=== PATIENT | female | born 1955 | race Caucasian/White ===

== ENCOUNTER 2016-04-17 12:47 | Observation (INO) | payer OTHER ==
[~2016-04-17 12:47] MED LIST: ADULT ASPIRIN81 MG PO; ADULT LOW DOSE81 M1 PO; ASPIRIN325 MG PO; CELEXA40 MG; CITALOPRAM HBR40 M1 PO; CLOPIDOGREL75 MG PO; EFFIENT10 MG/TAB PO; FISH OIL 1,0001 EAC6 PO; ISORDIL30 MG PO; ISOSORBIDE MONO30 M1 PO; ISOSORBIDE MONO60 M3 PO; LEVOTHROID137 MCG PO; LEVOTHROID150 MCG PO; LISINOPRIL20 MG; LOPRESSOR50 MG; LOPRESSOR50 MG PO; LOVASTATIN20 M2 PO; LOVASTATIN20 MG; METOPROLOL TART25 MG PO; MOTRIN600 MG PO; NAPROSYN500 MG PO; NITROQUICK0.4 MG SL; NORVASC5 M2 PO; SYNTHROID112 MC1 PO; SYNTHROID150 MCG; TOPROL XL25 MG PO; TOPROL XL50 MG PO; ULTRAM50 MG PO; ZESTRIL20 M3 PO; ZESTRIL20 MG PO; ZESTRIL40 M1 PO
[2016-04-17 13:01] LABS: BASO % 0.3 % (0-2); EOSINOPHIL ABSOLUTE COUNT 0.3 tho/cmm (0.0-0.7); HCT-HEMATOCRIT 44.7 % (34.0-49.0); HGB-HEMOGLOBIN 15.5 gm/dl (12.0-15.5); IMMATURE GRANULOCYTES ABSOLUTE 0.01 tho/cmm (0-0.03); IMMATURE GRANULOCYTES PERCENT 0.1 % (0-0.3); LYMPH % 38.4 % (20-45); LYMPH ABSOLUTE COUNT 3.3 tho/cmm (0.8-4.5); MCH (MEAN CORPUSCULAR HGB) 30.7 pg (28.0-32.0); MCHC MEAN CORPUSCULAR HGB CONC 34.7 % (32.0-36.0); MCV (MEAN CELL VOLUME) 88.5 fl (82.0-96.0); MEAN PLATELET VOLUME 10.8 cmc (9.4-12.4); MONO % 5.2 % (0-12); MONOCYTE ABSOLUTE COUNT 0.5 tho/cmm (0.0-1.2); NEUTROPHIL ABSOLUTE COUNT 4.5 tho/cmm (1.6-8.0); NEUTROPHIL-AUTOMATED 4.5 tho/cmm (1.6-8.0); PLATELET COUNT 225 tho/cmm (150-450); RED BLOOD COUNT 5.05 mil/cmm (4.00-5.20); RED CELL DISTRIBUTION WIDTH 13.4 % (12.4-16.4); WHITE BLOOD COUNT 8.6 tho/cmm (4.0-10.0)
[2016-04-17] MEDS ORDERED: OMEPRAZOLE20 M3 PO (13:11)
[2016-04-17] MEDS ORDERED: WELLBUTRIN SR150 M2 PO (13:14)
[2016-04-17 13:20] LABS: ANION GAP 13 mmol/L (0-20); BLOOD UREA NITROGEN 9 mg/dl (6-24); CALCIUM 8.6 mg/dl (8.5-10.5); CARBON DIOXIDE-VENOUS 26 mmol/L (22-32); CHLORIDE 106 mmol/l (96-110); CREATININE 0.85 mg/dl (0.50-1.10); GLUCOSE 152 mg/dL (70-110); SODIUM 140 mmol/L (135-145); eGFR VALUE FOR BLACK 87 mL/Min
[2016-04-17 13:53] LABS: POTASSIUM 4.5 mmol/L (3.7-5.1)
[2016-04-18 06:29] LABS: BASO % 0.4 % (0-2); EOS % 6.3 % (0-7); EOSINOPHIL ABSOLUTE COUNT 0.4 tho/cmm (0.0-0.7); HCT-HEMATOCRIT 41.7 % (34.0-49.0); HGB-HEMOGLOBIN 13.9 gm/dl (12.0-15.5); IMMATURE GRANULOCYTES ABSOLUTE 0.02 tho/cmm (0-0.03); IMMATURE GRANULOCYTES PERCENT 0.4 % (0-0.3); LYMPH % 28.6 % (20-45); LYMPH ABSOLUTE COUNT 1.6 tho/cmm (0.8-4.5); MCH (MEAN CORPUSCULAR HGB) 29.8 pg (28.0-32.0); MCHC MEAN CORPUSCULAR HGB CONC 33.3 % (32.0-36.0); MCV (MEAN CELL VOLUME) 89.3 fl (82.0-96.0); MEAN PLATELET VOLUME 11.2 cmc (9.4-12.4); MONO % 10.4 % (0-12); MONOCYTE ABSOLUTE COUNT 0.6 tho/cmm (0.0-1.2); NEUTROPHIL ABSOLUTE COUNT 3.1 tho/cmm (1.6-8.0); NEUTROPHIL-AUTOMATED 3.1 tho/cmm (1.6-8.0); NEUTROPHILS % 53.9 % (40-80); PLATELET COUNT 196 tho/cmm (150-450); RED BLOOD COUNT 4.67 mil/cmm (4.00-5.20); RED CELL DISTRIBUTION WIDTH 13.6 % (12.4-16.4); WHITE BLOOD COUNT 5.7 tho/cmm (4.0-10.0)
[2016-04-18 06:58] LABS: ANION GAP 11 mmol/L (0-20); BLOOD UREA NITROGEN 11 mg/dl (6-24); CARBON DIOXIDE-VENOUS 27 mmol/L (22-32); CHLORIDE 106 mmol/l (96-110); CHOLESTEROL 116 mg/dl (120-200); CREATININE 0.71 mg/dl (0.50-1.10); GLUCOSE 87 mg/dL (70-110); HDL CHOLESTEROL 31 mg/dl (40-60); LDL CHOLESTEROL 63 mg/dl (0-99); SODIUM 140 mmol/L (135-145); TRIGLYCERIDES 113 mg/dl (<149); VLDL 23 mg/dl (0-30); eGFR VALUE FOR BLACK >90 mL/Min
[2016-04-18 07:00] LABS: POTASSIUM 3.5 mmol/L (3.7-5.1)
== END 2016-04-18 11:45 ==
LOC: EDMED 12:47 → EMR2 15:10 → PCUB 18:50
PROVIDERS: Emergency Medicine; ADMIT Internal Medicine Cardiovascular Disease
PROC: 4A023N7 Measurement of Cardiac Sampling and Pressure, Left Heart, Percutaneous Approach (ICD-10-PCS; principal; 2016-04-17)
PROC: B2111ZZ Fluoroscopy of Multiple Coronary Arteries using Low Osmolar Contrast (ICD-10-PCS; 2016-04-17)
DX: I25.110 Atherosclerotic heart disease of native coronary artery with unstable angina pectoris (principal); F17.200 Nicotine dependence, unspecified, uncomplicated; I10 Essential (primary) hypertension; E78.5 Hyperlipidemia, unspecified; Z79.82 Long term (current) use of aspirin; Z79.899 Other long term (current) drug therapy; Z88.5 Allergy status to narcotic agent; Z91.041 Radiographic dye allergy status; Z82.49 Family history of ischemic heart disease and other diseases of the circulatory system; Z90.710 Acquired absence of both cervix and uterus; Z90.49 Acquired absence of other specified parts of digestive tract; Z95.5 Presence of coronary angioplasty implant and graft; Z98.890 Other specified postprocedural states
CPT/HCPCS: C1725; C1769; C1894; G0378; J0153; J1200; J1644; J2250; J2720; J7030; Q9967

== ENCOUNTER 2016-04-20 07:11 | Emergency (ER) | payer OTHER ==
[2016-04-20 07:04] LABS: BASO % 0.2 % (0-2); EOS % 3.1 % (0-7); EOSINOPHIL ABSOLUTE COUNT 0.4 tho/cmm (0.0-0.7); HCT-HEMATOCRIT 45.6 % (34.0-49.0); HGB-HEMOGLOBIN 15.5 gm/dl (12.0-15.5); IMMATURE GRANULOCYTES ABSOLUTE 0.04 tho/cmm (0-0.03); IMMATURE GRANULOCYTES PERCENT 0.3 % (0-0.3); LYMPH % 27.4 % (20-45); LYMPH ABSOLUTE COUNT 3.5 tho/cmm (0.8-4.5); MCH (MEAN CORPUSCULAR HGB) 30.2 pg (28.0-32.0); MCV (MEAN CELL VOLUME) 88.7 fl (82.0-96.0); MEAN PLATELET VOLUME 10.8 cmc (9.4-12.4); MONOCYTE ABSOLUTE COUNT 1.1 tho/cmm (0.0-1.2); NEUTROPHIL ABSOLUTE COUNT 7.6 tho/cmm (1.6-8.0); NEUTROPHIL-AUTOMATED 7.6 tho/cmm (1.6-8.0); PLATELET COUNT 253 tho/cmm (150-450); RED BLOOD COUNT 5.14 mil/cmm (4.00-5.20); RED CELL DISTRIBUTION WIDTH 13.3 % (12.4-16.4)
[~2016-04-20 07:11] MED LIST changes: +OMEPRAZOLE20 M3 PO; +WELLBUTRIN SR150 M2 PO
[2016-04-20 07:16] LABS: ANION GAP 12 mmol/L (0-20); BLOOD UREA NITROGEN 11 mg/dl (6-24); CALCIUM 8.8 mg/dl (8.5-10.5); CARBON DIOXIDE-VENOUS 26 mmol/L (22-32); CHLORIDE 104 mmol/l (96-110); CREATININE 0.95 mg/dl (0.50-1.10); GLUCOSE 119 mg/dL (70-110); POTASSIUM 3.7 mmol/L (3.7-5.1); SODIUM 138 mmol/L (135-145); eGFR VALUE FOR BLACK 76 mL/Min
[2016-04-20 07:21] LABS: WHITE BLOOD COUNT 12.6 tho/cmm (4.0-10.0)
[2016-04-20] MEDS ORDERED: NORCO 5-325 TA1 EACH PO (10:16)
== END 2016-04-20 10:27 ==
LOC: EDMED 07:11
PROVIDERS: Emergency Medicine
DX: R07.9 Chest pain, unspecified (principal); F17.200 Nicotine dependence, unspecified, uncomplicated
CPT/HCPCS: J1200; J2930; J7030; Q9967